=== PATIENT | male | born 1970 | race Caucasian/White ===

== ENCOUNTER 2017-06-07 07:51 | Emergency (ER) | payer BC ==
[2017-06-07] MEDS ORDERED: ZOFRAN INJ 4 MG VIAL ONE ×2 (07:52→09:17)
[2017-06-07] MEDS ORDERED: TORADOL 30 MG VIAL ONE (07:53)
[2017-06-07] MEDS ORDERED: ZOFRAN INJ 4 MG VIAL IVP ONE ×2 (08:02→09:16)
[2017-06-07] MEDS ORDERED: TORADOL 30 MG VIAL IVP ONE (08:02)
[2017-06-07] MEDS ORDERED: NS 1000 ML 1,000 ML IV ONE ×2 (08:05→09:10)
[2017-06-07 08:06] VITALS: BMI 29.0
[2017-06-07] MEDS ORDERED: NS 1000 ML 1,000 ML ONE ×2 (08:06→09:49)
[2017-06-07] MEDS ORDERED: DILAUDID INJ ONE ×2 (08:18→09:25)
[2017-06-07 08:24] LABS: BASOPHILS # (AUTO) 0.1 X10^3/uL (0.0-0.1); EOSINOPHILS # (AUTO) 0.4 x10^3/uL (0.0-0.2); EOSINOPHILS % (AUTO) 5.7 % (0.9-2.9); HEMATOCRIT 44.3 % (42.0-54.0); HEMOGLOBIN 15.2 g/dL (13.5-18.0); LYMPHOCYTES # (AUTO) 2.1 X10^3/uL (1.3-2.9); LYMPHOCYTES % (AUTO) 29.7 % (21.0-51.0); MEAN CORPUSCULAR HEMOGLOBIN 31.4 pg (27.0-34.0); MEAN CORPUSCULAR HGB CONC 34.4 g/dL (33.0-35.0); MEAN CORPUSCULAR VOLUME 91.1 fL (80.0-100.0); MEAN PLATELET VOLUME 10.4 fL (7.4-11.0); MONOCYTES # (AUTO) 0.5 x10^3/uL (0.3-0.8); MONOCYTES % (AUTO) 7.5 % (0.0-13.0); NEUTROPHILS % (AUTO) 56.1 % (42.0-75.0); PLATELET COUNT 159 X10^3/uL (150.0-450.0); RED BLOOD COUNT 4.86 X10^6/uL (4.7-6.0); RED CELL DISTRIBUTION WIDTH 12.9 % (11.6-16.5)
[2017-06-07] MEDS ORDERED: DILAUDID INJ IVP PRN (08:28)
--- NOTE | 2017-06-07 08:35 | DR.GENAD ---
HPI - HPI Comment HPI Comment: STARTED HOURS AGO. HISTORY KIDNEY STONE IN REMOTE PAST. NO FEVER OR DYSURIA. - Complaint/Symptoms Chief Complaint Doctors Comments: RIGHT FLANK PAIN RADIATING TO THE BACK WITH NAUSEA. Chief Complaint:: PT C/O RT FLANK PAIN RADIATING AROUND TO BACK. PT STATES HE ALSO HAS BEEN HAVING SOME NAUSEA. PT HAS A HISTORY OF KIDNEY STONES. - Nurses notes reviewed Nurses Notes Review: Yes - Source History Provided: Patient - Mode of Arrival Mode of Arrival: Ambulatory - Timing Onset of Chief Complaint: 06/07/17 Came on: Suddenly - Duration Duration: Constant Duration: Hours - Severity Severity: Moderate <TALIA GONZALEZ - Last Filed: 06/08/17 09:45> PMH - PMH Past Medical History: Yes Past Medical History: Dyslipidemia, Hyperthyroidism, Kidney Stones, [place] Past Surgical History: Yes Surgical History: Angioplasty/Stents, Lithotripsy Past Surgical History Comment: FACIAL SURGERY - Family History History of Family Medical Conditions: Yes Family Medical History: Diabetes Mellitus, Coronary Artery Disease, Hypertension - Social History Does any household member use tobacco: No Alcohol Use: None Do you use any recreational Drugs:: No Lives With: Family Lives Where: Home - infectious screening In the last 2 months have you had wt loss of >10#?: NO Have you had fever, night sweats or hemotysis?: No Have you traveled outside the country in the last 6 months?: No Isolation: Standard <TALIA GONZALEZ - Last Filed: 06/08/17 09:45> ROS - Review of Systems Constitutional: No Symptoms Reported Eyes: No Symptoms Reported ENTM: No Symptoms Reported Respiratoy: No Symptoms Reported Cardiovascular: No Symptoms Reported Gastrointestinal/Abdominal: Nausea Genitourinary: No Symptoms Reported Neurological: No Symptoms Reported Musculoskeletal: Back Pain, Back Integumentary: No Symptoms Reported Hematologic/Lymphatic: No Symptoms Reported Endocrine: No Symptoms Reported All Other Systems: Reviewed and Negative <TALIA GONZALEZ - Last Filed: 06/08/17 09:45> PE - General Limitations: No Limitations General Appearance: Alert - Head Head Exam: Normal Inspection - Eyes Eye exam: Normal Appearance - ENT ENT Exam: Normal External Ear Exam External Ear Exam: Normal External Inspection TM/Canal Exam: Bilateral Normal Nose Exam: Normal Nose Exam Mouth Exam: Normal Inspection Throat Exam: Normal Inspection - Neck Neck Exam: Trachea Midline - Chest Chest Inspection: Symmetric Chest Wall Rise - Respiratory Respiratory Exam: Normal Lung Sounds Bilat Respiratory Exam: Bilateral Clear to Auscultation - Cardiovascular Cardiovascular Exam: Regular Rate, Normal Rhythm, Normal Heart Sounds - Abdominal Exam Abdominal Exam: Normal Bowel Sounds, Soft. negative: Tenderness - Extremities Extremities Exam: Normal Inspection - Back Back Exam: (R) CVA Tenderness - Neurologic Neurological Exam: Alert, Oriented X3, Other (PATIENT IN PAIN.) - Psychiatric Psychiatric Exam: Normal Affect, Normal Mood - Skin Skin Exam: Normal Color <TALIA GONZALEZ - Last Filed: 06/08/17 09:45> - Vital Signs Vitals: Temperature 97.3 F Pulse Rate 60 Respiratory Rate 20 Blood Pressure [Right Arm] 113/58 Blood Pressure 127/82 O2 Sat by Pulse Oximetry 100 MDM - Additional Information Additional Information Obtained From: Family - Differential Diagnosis Differential Diagnosis: RIGHT RENAL CALCULI, PYELONEPHRITIS, MUSCULOSKELETAL PAIN <TALIA GONZALEZ - Last Filed: 06/08/17 09:45> Course - Treatment Treatment: SEE ORDERS. IV FLUID AND IV PAIN AND NAUSEA MED IN ED. - Reevaluation 1st: Unchanged 2nd: Improved - Education/Counseling Education/Counseling: Patient, Family, Education Educated On: Treatment, Diagnosis, Needs for Follow Up <TALIA GONZALEZ - Last Filed: 06/08/17 09:45> ROR - Labs Reviewed Result Diagrams: 06/07/17 08:16 06/07/17 08:16 <SHEYLA AUGUSTE - Last Filed: 06/07/17 08:46> - Labs Reviewed Laboratory Results Reviewed?: Yes Result Diagrams: 06/07/17 08:16 06/07/17 08:16 - XRAY XRAY Findings: REPORT DISCUSS WITH PATIENT. <TALIA GONZALEZ - Last Filed: 06/08/17 09:45> - Labs Reviewed Laboratory: WBC 7.0 X10^3/uL (3.6-10.0) 06/07/17 08:16 RBC 4.86 X10^6/uL (4.7-6.0) 06/07/17 08:16 Hgb 15.2 g/dL (13.5-18.0) 06/07/17 08:16 Hct 44.3 % (42.0-54.0) 06/07/17 08:16 MCV 91.1 fL (80.0-100.0) 06/07/17 08:16 MCH 31.4 pg (27.0-34.0) 06/07/17 08:16 MCHC 34.4 g/dL (33.0-35.0) 06/07/17 08:16 RDW 12.9 % (11.6-16.5) 06/07/17 08:16 Plt Count 159 X10^3/uL (150.0-450.0) 06/07/17 08:16 MPV 10.4 fL (7.4-11.0) 06/07/17 08:16 Neut % 56.1 % (42.0-75.0) 06/07/17 08:16 Lymph % 29.7 % (21.0-51.0) 06/07/17 08:16 [place] % 7.5 % (0.0-13.0) 06/07/17 08:16 Eos % 5.7 % (0.9-2.9) H 06/07/17 08:16 Baso % 1.0 % (0.2-1.0) 06/07/17 08:16 Neut # 4.0 x10^3/uL (2.2-4.8) 06/07/17 08:16 Lymph # 2.1 X10^3/uL (1.3-2.9) 06/07/17 08:16 [place] # 0.5 x10^3/uL (0.3-0.8) 06/07/17 08:16 Eos # 0.4 x10^3/uL (0.0-0.2) H 06/07/17 08:16 Baso # 0.1 X10^3/uL (0.0-0.1) 06/07/17 08:16 Absolute Nucleated RBC 0.0 /100WBC 06/07/17 08:16 Sodium 137 mmol/L (136-145) 06/07/17 08:16 Corrected Sodium 137 mmol/L (136-145) 06/07/17 08:16 Potassium 4.0 mmol/L (3.5-5.1) 06/07/17 08:16 Chloride 105 mmol/L (98-107) 06/07/17 08:16 Carbon Dioxide 24.2 mmol/L (21-32) 06/07/17 08:16 BUN 29 mg/dL (7-18) H 06/07/17 08:16 Creatinine 1.66 mg/dL (0.70-1.30) H 06/07/17 08:16 Est GFR (MDRD) Af Amer 58 (>60) L 06/07/17 08:16 Est GFR (MDRD) Non-Af 48 (>60) L 06/07/17 08:16 Glucose 119 mg/dL (65-99) H 06/07/17 08:16 Calcium 8.6 mg/dL (8.5-10.1) 06/07/17 08:16 Corrected Calcium TNP 06/07/17 08:16 Total Bilirubin 0.80 mg/dL (0.2-1.0) 06/07/17 08:16 AST 16 Units/L (15-37) 06/07/17 08:16 ALT 30 Units/L (12-78) 06/07/17 08:16 Alkaline Phosphatase 72 Units/L (46-116) 06/07/17 08:16 C-Reactive Protein 2.00 mg/L (0-3.0) 06/07/17 08:16 Total Protein 6.8 g/dL (6.4-8.2) 06/07/17 08:16 Albumin 3.7 g/dL (3.4-5.0) 06/07/17 08:16 Globulin 3.1 g/dL (2.5-4.5) 06/07/17 08:16 Albumin/Globulin Ratio 1.2 Ratio (1.1-2.1) 06/07/17 08:16 <SHEYLA AUGUSTE - Last Filed: 06/07/17 08:46> <TALIA GONZALEZ - Last Filed: 06/08/17 09:45> - Diagnosis Discharge Problem: Kidney stone on right side - Discharge Plan Disposition: HOME, SELF-CARE Condition: Stable - Follow ups/Referrals Follow ups/Referrals: DYEA HOWELL [Primary Care Provider] - 3 days GISELLE PRIETO [CONSULTING PHYSICIAN] - 06/07/17 - Instructions Instructions: Kidney Stones, [id number] Additional Instructions: RETURN TO ED IF WORSE. NPO TILL YOU SEE DR. PRIETO.
[2017-06-07 08:38] LABS: ALANINE AMINOTRANSFERASE 30 Units/L (12-78); ALBUMIN 3.7 g/dL (3.4-5.0); ALKALINE PHOSPHATASE 72 Units/L (46-116); ASPARTATE AMINO TRANSFERASE 16 Units/L (15-37); BLOOD UREA NITROGEN 29 mg/dL (7-18); CALCIUM 8.6 mg/dL (8.5-10.1); CARBON DIOXIDE 24.2 mmol/L (21-32); CHLORIDE 105 mmol/L (98-107); COR NA(FOR HYPERGLY) 137 mmol/L (136-145); CREATININE 1.66 mg/dL (0.70-1.30); SODIUM 137 mmol/L (136-145); TOTAL PROTEIN 6.8 g/dL (6.4-8.2); eGFR BLACK RACES 58 (>60); eGFR NON BLACK RACES 48 (>60)
--- NOTE | 2017-06-07 08:45 | CT ---
HISTORY: Right flank pain Study: CT abdomen and pelvis without IV or oral contrast Comparison: No priors Technique: Multiple axial images of the abdomen and pelvis were obtained from the lung bases to the pubic symphy sis without the administration of IV or oral contrast. Coronal and sagittal images are also reviewed . Dose reduction techniques utilized automatic exposure control. Findings: The visualized portions of the lung bases are unremarkable. The liver, spleen, pancreas, and adrenal glands are unremarkable in their CT appearance. The gallbladder is unremarkable in its CT appearance . There is a 2.7 mm nonobstructing stone in the upper pole of the left kidney. There are 2.4 and 5.7 mm nonobstructing stones present in the mid-lower kidney region on the right. A 4.0 mm stone is prese nt involving the right mid ureter with very mild obstructive change. No significant mesenteric lymph adenopathy or stranding can be observed. No free fluid or free air is seen within the abdomen. No b owel wall thickening or bowel dilatation is present. The colon is unremarkable. Specifically, there is no diverticulosis noted within the sigmoid colon. The urinary bladder is grossly unremarkable. T he bony structures are grossly intact. IMPRESSION: Bilateral kidney stones. 4 mm right mid ureteral stone with very mild obstructive change. Reported By:
[2017-06-07] MEDS ORDERED: FLOMAX PO ONE (09:11)
[2017-06-07] MEDS ORDERED: DILAUDID INJ IVP ONE (09:23)
[2017-06-07 10:19] VITALS: BP 113/58
== END 2017-06-07 10:21 | disposition home or self-care (01) ==
LOC: ER 07:59
DX: N20.0 Calculus of kidney (principal); R10.84 Generalized abdominal pain
CPT/HCPCS: 36415; 74176; 80053; 85025; 86140; 96365; 96367; 96374; 96375; 99283; 99285; A4222; J1170; J1885; J2405

== ENCOUNTER 2020-10-18 02:34 | Observation (INO) ==
[2020-10-18] MEDS ORDERED: NS 1000 ML 1,000 ML ONE ×2 (02:58→05:01)
[2020-10-18] MEDS ORDERED: NS 1000 ML 1,000 ML IV ONE (03:00)
--- NOTE | 2020-10-18 03:07 | DR.DIZZY ---
HPI Time seen Time Seen by Provider: 10/18/20 03:03 PCP Primary Care Physician: DEYA HOWELL Complaint Chief Complaint:: PT STATES HE'S BEEN TAKING A BOWEL PREP FOR TOMORROW FOR A PROCEDURE, HE WOKE UP TO GO TO THE BATHROOM, STARTED HAVING SEVERE ABDOMINAL CRAMPS AND THEN HE WAS UNABLE TO FEEL HIS HANDS/EXTREMITIES, CALLED OUT FOR HIS AND PASSED OUT, HIT HIS LIP. LACERATION NOTED TO UPPER LIP (INNER AND OUTER). Self Treatment fo Chief Complaint: ZOFRAN DISSOLVE Source History Provided: Patient and Family Member Mode of Arrival Mode of Arrival: EMS Timing Onset of Chief Complaint: 10/18/20 PMH PMH Past Medical History: Yes Past Medical History: Coronary Artery Disease, Dyslipidemia, Hypertension, Hypothyroidism and Kidney Stones Past Medical History Comment: CARDIAC STENTS X6, [place] X2 (APR 2011 AND DECEMBER 2019) Past Surgical History: Yes Surgical History: Angioplasty/Stents and Lithotripsy Past Surgical History Comment: FACIAL FRACTURE WITH PLATES AND SCREWS, LIT HOTRIPSY Family History History of Family Medical Conditions: Yes Family Medical History: Diabetes Mellitus and Hypertension Social History Does patient currently use any type of tobacco product: No Have you used tobacco products in the last 12 months: No Type of Tobacco Use: None Does any household member use tobacco: No Do you use any recreational Drugs:: No Lives With: Spouse Lives Where: Home Infectious screening In the last 2 months have you had wt loss of >10#?: NO Have you had fever, night sweats or hemotysis?: No Have you traveled outside the country in the last 6 months?: No Isolation: Standard PE Vital Signs Vitals: Temperature 97.6 F Pulse Rate 60 Respiratory Rate 20 Blood Pressure [Right Arm] 137/77 Blood Pressure 133/85 O2 Sat by Pulse Oximetry 100 ROR Labs Reviewed Result Diagrams: 10/18/20 03:12 10/18/20 03:12 Laboratory: WBC 7.0 X10^3/uL (3.6-10.0) 10/18/20 03:12 RBC 4.42 X10^6/uL (4.7-6.0) L 10/18/20 03:12 Hgb 14.2 g/dL (13.5-18.0) 10/18/20 03:12 Hct 41.2 % (42.0-54.0) L 10/18/20 03:12 MCV 93.1 fL (80.0-100.0) 10/18/20 03:12 MCH 32.1 pg (27.0-34.0) 10/18/20 03:12 MCHC 34.5 g/dL (33.0-35.0) 10/18/20 03:12 RDW 13.2 % (11.6-16.5) 10/18/20 03:12 Plt Count 166 X10^3/uL (150.0-450.0) 10/18/20 03:12 MPV 9.4 fL (7.4-11.0) 10/18/20 03:12 Neut % (Auto) 65.0 % (42.0-75.0) 10/18/20 03:12 Lymph % (Auto) 25.1 % (21.0-51.0) 10/18/20 03:12 [place] % (Auto) 6.6 % (0.0-13.0) 10/18/20 03:12 Eos % (Auto) 2.5 % (0.9-2.9) 10/18/20 03:12 Baso % (Auto) 0.8 % (0.2-1.0) 10/18/20 03:12 Neut # (Auto) 4.6 x10^3/uL (2.2-4.8) 10/18/20 03:12 Lymph # (Auto) 1.8 X10^3/uL (1.3-2.9) 10/18/20 03:12 [place] # (Auto) 0.5 x10^3/uL (0.3-0.8) 10/18/20 03:12 Eos # (Auto) 0.2 x10^3/uL (0.0-0.2) 10/18/20 03:12 Baso # (Auto) 0.1 X10^3/uL (0.0-0.1) 10/18/20 03:12 Absolute Nucleated RBC 0.1 /100WBC 10/18/20 03:12 Sodium 139 mmol/L (136-145) 10/18/20 03:12 Corrected Sodium TNP 10/18/20 03:12 Potassium 4.1 mmol/L (3.5-5.1) 10/18/20 03:12 Chloride 107 mmol/L (98-107) 10/18/20 03:12 Carbon Dioxide 25.7 mmol/L (21-32) 10/18/20 03:12 BUN 10 mg/dL (7-18) 10/18/20 03:12 Creatinine 1.76 mg/dL (0.70-1.30) H 10/18/20 03:12 Est GFR (MDRD) Af Amer 53 (>60) L 10/18/20 03:12 Est GFR (MDRD) Non-Af 44 (>60) L 10/18/20 03:12 Glucose 95 mg/dL (65-99) 10/18/20 03:12 Lactic Acid 1.6 mmol/L (0.4-2.0) 10/18/20 03:12 Calcium 7.8 mg/dL (8.5-10.1) L 10/18/20 03:12 Corrected Calcium 8.4 mg/dL (8.5-10.1) L 10/18/20 03:12 Total Bilirubin 0.50 mg/dL (0.2-1.0) 10/18/20 03:12 AST 15 Units/L (15-37) 10/18/20 03:12 ALT 22 Units/L (12-78) 10/18/20 03:12 Alkaline Phosphatase 67 Units/L (46-116) 10/18/20 03:12 Creatine Kinase 115 Units/L (39-308) 10/18/20 03:12 CK-MB (CK-2) 1.1 ng/mL (0-4.0) 10/18/20 03:12 CK/CKMB % Calc 1.0 % (<4) 10/18/20 03:12 Troponin I < 0.02 ng/mL (0-1.5) 10/18/20 03:12 Total Protein 5.9 g/dL (6.4-8.2) L 10/18/20 03:12 Albumin 3.3 g/dL (3.4-5.0) L 10/18/20 03:12 Globulin 2.6 g/dL (2.5-4.5) 10/18/20 03:12 Albumin/Globulin Ratio 1.3 Ratio (1.1-2.1) 10/18/20 03:12 Amylase 48 Units/L (25-115) 10/18/20 03:12 Lipase 280 Units/L (73-393) 10/18/20 03:12 Specimen Type Clean catch urine 10/18/20 04:08 Urine Color Yellow (YELLOW) 10/18/20 04:08 Urine Appearance Clear (CLEAR) 10/18/20 04:08 Urine pH 6.5 (5.0 - 8.0) 10/18/20 04:08 Ur Specific [place] 1.010 (1.000-1.030) 10/18/20 04:08 Urine Protein Negative (NEGATIVE) 10/18/20 04:08 Urine Glucose (UA) Negative (NEGATIVE) 10/18/20 04:08 Urine Ketones Negative (NEGATIVE) 10/18/20 04:08 Urine Occult Blood Negative (NEGATIVE) 10/18/20 04:08 Urine Nitrite Negative (NEGATIVE) 10/18/20 04:08 Urine Bilirubin Negative (NEGATIVE) 10/18/20 04:08 Urine Urobilinogen Normal (NORMAL) 10/18/20 04:08 Ur Leukocyte Esterase Negative (NEGATIVE) 10/18/20 04:08 Opioid Opioid Risk Tool Age (Avel box if 16-45): No History of Preadolescent Sexual Abuse: No Total: 0 Total Score Risk Category: Low Risk Copyright: Jorge WANG predicting aberrant behaviors
[2020-10-18 03:26] LABS: BASOPHILS # (AUTO) 0.1 X10^3/uL (0.0-0.1); BASOPHILS % (AUTO) 0.8 % (0.2-1.0); EOSINOPHILS # (AUTO) 0.2 x10^3/uL (0.0-0.2); EOSINOPHILS % (AUTO) 2.5 % (0.9-2.9); HEMATOCRIT 41.2 % (42.0-54.0); HEMOGLOBIN 14.2 g/dL (13.5-18.0); LYMPHOCYTES # (AUTO) 1.8 X10^3/uL (1.3-2.9); LYMPHOCYTES % (AUTO) 25.1 % (21.0-51.0); MEAN CORPUSCULAR HEMOGLOBIN 32.1 pg (27.0-34.0); MEAN CORPUSCULAR HGB CONC 34.5 g/dL (33.0-35.0); MEAN CORPUSCULAR VOLUME 93.1 fL (80.0-100.0); MEAN PLATELET VOLUME 9.4 fL (7.4-11.0); MONOCYTES # (AUTO) 0.5 x10^3/uL (0.3-0.8); MONOCYTES % (AUTO) 6.6 % (0.0-13.0); NEUTROPHILS # (AUTO) 4.6 x10^3/uL (2.2-4.8); PLATELET COUNT 166 X10^3/uL (150.0-450.0); RED BLOOD COUNT 4.42 X10^6/uL (4.7-6.0); RED CELL DISTRIBUTION WIDTH 13.2 % (11.6-16.5)
[2020-10-18 03:38] LABS: LACTIC ACID 1.6 mmol/L (0.4-2.0)
[2020-10-18 03:40] LABS: BLOOD UREA NITROGEN 10 mg/dL (7-18); CALCIUM 7.8 mg/dL (8.5-10.1); CARBON DIOXIDE 25.7 mmol/L (21-32); CHLORIDE 107 mmol/L (98-107); CREATININE 1.76 mg/dL (0.70-1.30); SODIUM 139 mmol/L (136-145); TROPONIN I < 0.02 ng/mL (0-1.5); eGFR NON BLACK RACES 44 (>60)
[2020-10-18 03:44] LABS: ALANINE AMINOTRANSFERASE 22 Units/L (12-78); ALBUMIN 3.3 g/dL (3.4-5.0); ALKALINE PHOSPHATASE 67 Units/L (46-116); AMYLASE 48 Units/L (25-115); ASPARTATE AMINO TRANSFERASE 15 Units/L (15-37); COR CA(FOR HYPOALB) 8.4 mg/dL (8.5-10.1); CREATINE KINASE 115 Units/L (39-308); CREATINE KINASE MB 1.1 ng/mL (0-4.0); LIPASE 280 Units/L (73-393); TOTAL PROTEIN 5.9 g/dL (6.4-8.2)
--- NOTE | 2020-10-18 03:52 | CT ---
PROCEDURE: CT Abdomen and Pelvis without Contrast .HISTORY: Epigastric pain.TECHNIQUE: Axial images were performed through the abdomen and pelvis without the administration of IV contrast with multiplanar reformations . Oral contrast was not administered . Dose reduction techniques including Automated Exposure Control (AEC) and adjustment of mA and kV were utilized .COMPARISON: 05/10/2019.TECHNICAL QUALITY: Satisfactory .FINDINGS:Clear lung bases.Liver, spleen, adrenals, pancreas show no significant abnormality.Subcentimeter nonobstructing caliceal stones both kidneys. No ureteral stones or obstructive uropathy.Normal biliary tract.No abdominal ascites or pneumoperitoneum.Normal aorta.No lymphadenopathy.No bowel obstruction or inflammation. Possible 3 cm giant duodenal diverticulum with food stuffs in the lumen. Normal appendix right lower quadrant.Pelvis shows no masses or free fluid. Normal urinary bladder.No acute bony abnormality.IMPRESSION:1. No explanation for epigastric pain.2. Bilateral nephrolithiasis.3. Giant duodenal diverticulum. For4. No other significant abnormality identified.Electronically signed by: Gavin Dooley (October 18, 2020 03:50:30)
--- NOTE | 2020-10-18 03:53 | CT ---
PROCEDURE: CT Head without Contrast .HISTORY: PT STATES PASSED OUT AND LANDED ON FACE .TECHNIQUE: Axial images were performed through the head without the administration of IV contrast with multiplanar reformations . Dose reduction techniques including Automated Exposure Control (AEC) and adjustment of mA and kV were utilized .COMPARISON: 01/29/2020.TECHNICAL QUALITY: Satisfactory .FINDINGS:Brain shows no mass, hemorrhage, or acute stroke.Ventricles are normal size for patient's age.No acute skull or scalp abnormality.Visualized sinuses and mastoids are clear.IMPRESSION:Normal CT scan of the head.Electronically signed by: Gavin Dooley (October 18, 2020 03:51:53)
[2020-10-18 04:24] LABS: BILIRUBIN,URINE NEGATIVE (NEGATIVE); BLOOD/HEMOGLOBIN,URINE NEGATIVE (NEGATIVE); GLUCOSE, URINE NEGATIVE (NEGATIVE); KETONES,URINE NEGATIVE (NEGATIVE); LEUKOCYTE ESTERASE ,URINE NEGATIVE (NEGATIVE); NITRITES,URINE NEGATIVE (NEGATIVE); PH,URINE 6.5 (5.0 - 8.0); PROTEIN,URINE NEGATIVE (NEGATIVE); UROBILINOGEN,URINE NORMAL (NORMAL)
[2020-10-18 04:26] LABS: APPEARANCE,URINE CLEAR (CLEAR); COLOR,URINE YELLOW (YELLOW)
[2020-10-18] MEDS ORDERED: ZOFRAN INJ 4 MG VIAL IVP PRN ×2 (04:46→05:32)
[2020-10-18] MEDS ORDERED: PEPCID 20 MG IV PREMIX* 20 MG/50 ML BAG IV PRN (04:46)
[2020-10-18] MEDS ORDERED: ZOFRAN INJ 4 MG VIAL ONE (04:57)
[2020-10-18] MEDS ORDERED: NS 1000 ML 1,000 ML IV SCH (05:00)
[2020-10-18] MEDS ORDERED: PEPCID 20 MG IV PREMIX* 20 MG/50 ML BAG IV ONE (05:01)
[2020-10-18] MEDS ORDERED: D5 LR 1000 ML 1,000 ML IV ONE (08:09)
[2020-10-18] MEDS ORDERED: DIPRIVAN VIAL 20 ML ONE ×2 (08:39→08:57)
[2020-10-18] MEDS ORDERED: XYLOCAINE 2 % (PLAIN) ONE (08:40)
[2020-10-18] MEDS ORDERED: ZOFRAN INJ 4 MG VIAL IVP ONE (09:38)
[2020-10-18 12:07] VITALS: BP 126/73
[2020-10-18 21:13] VITALS: BMI 26.8
== END 2020-10-18 14:00 | disposition home or self-care (01) ==
LOC: ER 02:34 → MED/SURG 02:34
PROVIDERS: ADMIT Emergency Medicine; ATTEND Surgery
DX: K21.00 Gastro-esophageal reflux disease with esophagitis, without bleeding; K27.9 Peptic ulcer, site unspecified, unspecified as acute or chronic, without hemorrhage or perforation; R13.11 Dysphagia, oral phase; I10 Essential (primary) hypertension; R10.84 Generalized abdominal pain; N20.0 Calculus of kidney; K44.9 Diaphragmatic hernia without obstruction or gangrene; E78.2 Mixed hyperlipidemia; K59.09 Other constipation; E03.8 Other specified hypothyroidism; I25.10 Atherosclerotic heart disease of native coronary artery without angina pectoris; R55 Syncope and collapse; K29.60 Other gastritis without bleeding; E86.0 Dehydration; W18.39XA Other fall on same level, initial encounter

== ENCOUNTER 2025-03-23 20:35 | Observation (INO) ==
--- NOTE | 2025-03-23 20:53 | EKG ---
Test Reason : chest pain Blood Pressure : */* mmHG Vent. Rate : 67 BPM Atrial Rate : 67 BPM P-R Int : 150 ms QRS Dur : 84 ms QT Int : 364 ms P-R-T Axes : 39 -1 -9 degrees QTc Int : 384 ms Normal sinus rhythm Inferior infarct , age undetermined Abnormal ECG No previous ECGs available Confirmed by Tad Flores MD ([id number]) on 03/24/2025 4:48:19 AM Referred By: Confirmed By: Tad Flores MD
[2025-03-23 21:14] LABS: MEAN PLATELET VOLUME 9.4 fL (7.4-11.0); RED CELL DISTRIBUTION WIDTH 13.6 % (11.6-16.5)
[2025-03-23 21:21] LABS: INR 0.88 (0.8-1.3)
[2025-03-23 21:34] LABS: CHOL/HDL RATIO 2.0 (0.0-5.0); CREATININE 1.58 mg/dL (0.70-1.30); eGFR NON BLACK RACES 49 (>60)
[2025-03-23 21:57] LABS: BLOOD/HEMOGLOBIN,URINE NEGATIVE (NEGATIVE); LEUKOCYTE ESTERASE ,URINE NEGATIVE (NEGATIVE); NITRITES,URINE NEGATIVE (NEGATIVE)
[2025-03-23 21:58] LABS: APPEARANCE,URINE CLEAR (CLEAR)
[2025-03-23 22:05] LABS: SQUAMOUS EPITHELIAL CELL,UR NEGATIVE /HPF (NEGATIVE)
--- NOTE | 2025-03-23 22:06 | DR.CP ---
HPI Time Seen Time Seen by Provider: 03/23/25 20:39 PCP Primary Care Physician: Chilel Complaint Chief Complaint Doctor Comments: Patient with extensive cardiovascular history including stents presents with left chest tightness/pain since yesterday. Pain radiates from left chest to right arm. Chief Complaint:: pt ambulatory in ed complains of chest tight radiading to his right arm and into his back since yesterday. pt states he had ju jitsu sunday and woke with a nagging pain sunday that hasnt went away. pt has an extensive cardiac hx. COVID-19 Coronavirus risk:travel/contact w/high risk person: No Has patient experienced Coronavirus symptoms: No Source History Provided: Patient Mode of Arrival Mode of Arrival: Ambulatory Timing Onset of Chief Complaint: 03/22/25 PMH PMH Past Medical History: Yes Past Medical History: Coronary Artery Disease, GERD, Hypertension, Hyperthyroidism, [place] and Renal Disease Past Medical History Comment: Ulcerative Colitis Past Surgical History: Yes Surgical History: Angioplasty/Stents, Ortho Surgery and Lithotripsy Past Surgical History Comment: Total Left Hip, [place] Fx Repair Family History History of Family Medical Conditions: Yes Family Medical History: Coronary Artery Disease and Hypertension Social History Do you use any recreational Drugs:: No Travel Risk Coronavirus risk:travel/contact w/high risk person: No Has patient experienced Coronavirus symptoms: No Infectious screening Have you traveled outside the country in the last 6 months?: No Isolation: Standard ROS Review of Systems Constitutional: No Symptoms Reported Eyes: No Symptoms Reported ENTM: No Symptoms Reported Respiratoy: No Symptoms Reported Cardiovascular: See HPI and Chest Pain; negative Edema, Palpitations, Syncope or Cyanosis Gastrointestinal/Abdominal: No Symptoms Reported Genitourinary: No Symptoms Reported Neurological: No Symptoms Reported Musculoskeletal: No Symptoms Reported Integumentary: No Symptoms Reported Hematologic/Lymphatic: No Symptoms Reported Endocrine: No Symptoms Reported Psychiatric: No Symptoms Reported All Other Systems: Reviewed and Negative PE Vitals Vitals: Vital Signs Temperature 98.0 F Pulse Rate 56 Pulse Rate 57 Pulse Rate 56 Pulse Rate 55 Pulse Rate 56 Pulse Rate 58 Pulse Rate 60 Pulse Rate 64 Pulse Rate 62 Pulse Rate 66 Pulse Rate 65 Pulse Rate 67 Respiratory Rate 20 Respiratory Rate 16 Respiratory Rate 25 Respiratory Rate 18 Respiratory Rate 22 Respiratory Rate 23 Respiratory Rate 24 Respiratory Rate 21 Respiratory Rate 22 Respiratory Rate 20 Blood Pressure 145/89 Blood Pressure 127/75 Blood Pressure 148/90 Blood Pressure 138/89 Blood Pressure 138/83 O2 Sat by Pulse Oximetry 97 O2 Sat by Pulse Oximetry 97 O2 Sat by Pulse Oximetry 97 O2 Sat by Pulse Oximetry 97 O2 Sat by Pulse Oximetry 97 O2 Sat by Pulse Oximetry 97 O2 Sat by Pulse Oximetry 96 O2 Sat by Pulse Oximetry 98 O2 Sat by Pulse Oximetry 98 O2 Sat by Pulse Oximetry 99 O2 Sat by Pulse Oximetry 99 General Limitations: No Limitations General Appearance: Alert and In No Apparent Distress Head Head Exam: Normal Inspection Eyes Eye exam: Normal Appearance ENT ENT Exam: Normal Exam Chest Chest Inspection: Normal Inspection and Symmetric Chest Wall Rise; negative Tenderness Respiratory Respiratory Exam: Normal Lung Sounds Bilat Cardiovascular Cardiovascular Exam: Regular Rate and Normal Rhythm Pulse: Normal Edema: Normal Abdominal Exam Abdominal Exam: Normal Inspection, Normal Bowel Sounds and Soft Extremities Extremities Exam: Normal Inspection Back Back Exam: Normal Inspection Neurologic Neurological Exam: Alert and Oriented X3 Psychiatric Psychiatric Exam: Normal Affect and Normal Mood Skin Skin Exam: Warm, Dry, Intact and Normal Color COURSE Treatment Treatment: Discussed results of workup with patient patient heart score of 4-5. Patient agreeable to admission. Consultation Called: 23:50 Consultation Comments: Discussed case with Dr. Flores and he is agreeable to admission ROR Labs Reviewed Laboratory Results Reviewed?: Yes 03/23/25 20:45 03/23/25 20:45 Laboratory: WBC 6.2 X10^3/uL (3.6-10.0) 03/23/25 20:45 RBC 4.85 X10^6/uL (4.7-6.0) 03/23/25 20:45 Hgb 14.9 g/dL (13.5-18.0) 03/23/25 20:45 Hct 43.2 % (42.0-54.0) 03/23/25 20:45 MCV 89.1 fL (80.0-100.0) 03/23/25 20:45 MCH 30.6 pg (27.0-34.0) 03/23/25 20:45 MCHC 34.4 g/dL (33.0-35.0) 03/23/25 20:45 RDW 13.6 % (11.6-16.5) 03/23/25 20:45 Plt Count 195 X10^3/uL (150.0-450.0) 03/23/25 20:45 MPV 9.4 fL (7.4-11.0) 03/23/25 20:45 Neut % (Auto) 56.9 % (42.0-75.0) 03/23/25 20:45 Lymph % (Auto) 32.6 % (21.0-51.0) 03/23/25 20:45 [place] % (Auto) 7.8 % (0.0-13.0) 03/23/25 20:45 Eos % (Auto) 1.6 % (0.9-2.9) 03/23/25 20:45 Baso % (Auto) 1.1 % (0.2-1.0) H 03/23/25 20:45 Neut # (Auto) 3.5 x10^3/uL (2.2-4.8) 03/23/25 20:45 Lymph # (Auto) 2.0 X10^3/uL (1.3-2.9) 03/23/25 20:45 Dickinson # (Auto) 0.5 x10^3/uL (0.3-0.8) 03/23/25 20:45 Eos # (Auto) 0.1 x10^3/uL (0.0-0.2) 03/23/25 20:45 Baso # (Auto) 0.1 X10^3/uL (0.0-0.1) 03/23/25 20:45 Absolute Nucleated RBC 0.2 /100WBC 03/23/25 20:45 PT 12.0 SECONDS (11.8-14.3) 03/23/25 20:45 INR Target Range - 03/23/25 20:45 INR 0.88 (0.8-1.3) 03/23/25 20:45 APTT 24.3 SECONDS (22.9-36.5) 03/23/25 20:45 PTT Comment - 03/23/25 20:45 Sodium 139 mmol/L (136-145) 03/23/25 20:45 Corrected Sodium TNP 03/23/25 20:45 Potassium 3.2 mmol/L (3.5-5.1) L 03/23/25 20:45 Chloride 103 mmol/L (98-107) 03/23/25 20:45 Carbon Dioxide 28.5 mmol/L (21-32) 03/23/25 20:45 BUN 9 mg/dL (7-18) 03/23/25 20:45 Creatinine 1.58 mg/dL (0.70-1.30) H 03/23/25 20:45 Est GFR (MDRD) Af Amer 59 (>60) 03/23/25 20:45 Est GFR (MDRD) Non-Af 49 (>60) L 03/23/25 20:45 Glucose 96 mg/dL (65-99) 03/23/25 20:45 Calcium 8.5 mg/dL (8.5-10.1) 03/23/25 20:45 Corrected Calcium TNP 03/23/25 20:45 Magnesium 1.9 mg/dL (2.0-2.9) L 03/23/25 20:45 Total Bilirubin 0.50 mg/dL (0.2-1.0) 03/23/25 20:45 AST 15 Units/L (15-37) 03/23/25 20:45 ALT 20 Units/L (12-78) 03/23/25 20:45 Alkaline Phosphatase 100 Units/L (46-116) 03/23/25 20:45 Creatine Kinase 82 Units/L (39-308) 03/23/25 20:45 Troponin I High Sens 6.6 ng/L (4.0-60.0) 03/23/25 22:27 Total Protein 6.6 g/dL (6.4-8.2) 03/23/25 20:45 Albumin 3.5 g/dL (3.4-5.0) 03/23/25 20:45 Globulin 3.1 g/dL (2.5-4.5) 03/23/25 20:45 Albumin/Globulin Ratio 1.1 Ratio (1.1-2.1) 03/23/25 20:45 Triglycerides 236 mg/dL (0-150) H 03/23/25 20:45 Triglycerides Cancelled 03/23/25 20:45 Cholesterol 118 mg/dL (0-200) 03/23/25 20:45 Cholesterol Cancelled 03/23/25 20:45 LDL Cholesterol, Calc 12 mg/dL (0-100) 03/23/25 20:45 LDL Cholesterol, Calc Cancelled 03/23/25 20:45 HDL Cholesterol 59 mg/dL (40-60) 03/23/25 20:45 HDL Cholesterol Cancelled 03/23/25 20:45 Cholesterol/HDL Ratio 2.0 (0.0-5.0) 03/23/25 20:45 Cholesterol/HDL Ratio Cancelled 03/23/25 20:45 Specimen Type Clean catch urine 03/23/25 21:42 Urine Color Straw (YELLOW) 03/23/25 21:42 Urine Appearance Clear (CLEAR) 03/23/25 21:42 Urine pH 6.0 (5.0 - 8.0) 03/23/25 21:42 Ur Specific [place] 1.010 (1.000-1.030) 03/23/25 21:42 Urine Protein 1+ (NEGATIVE) 03/23/25 21:42 Urine Glucose (UA) 4+ (NEGATIVE) 03/23/25 21:42 Urine Ketones Negative (NEGATIVE) 03/23/25 21:42 Urine Blood Negative (NEGATIVE) 03/23/25 21:42 Urine Nitrite Negative (NEGATIVE) 03/23/25 21:42 Urine Bilirubin Negative (NEGATIVE) 03/23/25 21:42 Urine Urobilinogen Normal (NORMAL) 03/23/25 21:42 Ur Leukocyte Esterase Negative (NEGATIVE) 03/23/25 21:42 Urine RBC None seen /HPF (0-3) 03/23/25 21:42 Urine WBC None seen /HPF (0-5) 03/23/25 21:42 Ur Squamous Epith Cells Negative /HPF (NEGATIVE) 03/23/25 21:42 Urine Bacteria Negative /HPF (NEGATIVE) 03/23/25 21:42 Ur Culture Indicated? No/not indicated 03/23/25 21:42 XRAY X-ray Results: Name: NAVYA COFFEY : 1970 Sex: M Location: ER Order Number(s): [id number] Procedure(s):CHEST, 1 VIEW X-RAY Ordering Physician: Kye Boone Primary Care: [facility] Service Date: 03/23/25 Service Time: 2039 EXAM: CHEST, 1 VIEW HISTORY: Chest Pain; COMPARISON: October 29, 2023 FINDINGS: The lungs are clear. No pneumothorax or effusion. Heart size is normal. The bones are unremarkable. IMPRESSION: 1. No acute cardiopulmonary abnormality THIS IS AN ELECTRONICALLY VERIFIED FINAL REPORT 03/23/2025 10:49 PM - Electronically signed by Hannah Mendoza MD EKG Rate: 67 [place]: Normal Rhythm: NSR Block: None Hypertrophy: None ST: Normal Opioid Opioid Risk Tool Age (Avel box if 16-45): No History of Preadolescent Sexual Abuse: No Total: 0 Total Score Risk Category: Low Risk Copyright: [facility] predicting aberrant behaviors Discharge Plan Diagnosis Discharge Problem: Chest pain, Coronary artery disease, Hypertension, Hyperlipidemia Discharge Plan Patient Disposition: ADMITTED INPATIENT Condition: Stable Prescriptions: No Action aspirin 81 mg Tablet 81 mg PO QMWF ergocalciferol (vitamin D2) [Drisdol] 1,250 mcg (50,000 unit) Capsule 1,250 mcg PO Q2W tadalafil 5 mg Tablet 5 mg PO QDAY pantoprazole 40 mg tablet,delayed release (DR/EC) 40 mg PO DAILY losartan 25 mg tablet 25 mg PO DAILY testosterone cypionate 200 mg/mL oil 100 mg IM WEEKLY Repatha SureClick 140 mg/mL pen injector 140 mg SUBCUT Q2W amlodipine 5 mg tablet 5 mg PO QDAY meloxicam 7.5 mg tablet 7.5 mg PO QMWF tamsulosin 0.4 mg capsule 0.4 mg PO DAILY levothyroxine 150 mcg tablet 150 mcg PO QDAY dapagliflozin propanediol [Farxiga] 10 mg tablet 10 mg PO QDAY Health Concerns: Post Hospitalization: new medications and changes needed to prevent readmission or further decline. Pt educated and given instructions on all concerns. Plan of Treatment: Continue with present treatment and follow up plan. Pt is to keep follow up appointment as instructed and take medications as ordered. Orders to Discharge Patient Discharge Orders: Transfer (Routine); Ordered 03/23/25 Ordered By: Kye Boone Follow ups/Referrals Follow ups/Referrals: DEYA HOWELL [Primary Care Provider, MEDICAL] - 3 days Instructions Stand Alone Forms: Find Help Web Site, Post Hospital Follow Up Care Print Language: LITHUANIAN
--- NOTE | 2025-03-23 22:53 | RAD ---
EXAM: CHEST, 1 VIEW HISTORY: Chest Pain; COMPARISON: October 29, 2023 FINDINGS: The lungs are clear. No pneumothorax or effusion. Heart size is normal. The bones are unremarkable. IMPRESSION: 1. No acute cardiopulmonary abnormality THIS IS AN ELECTRONICALLY VERIFIED FINAL REPORT 03/23/2025 10:49 PM - Electronically signed by Hannah Mendoza MD
[2025-03-24] MEDS ORDERED: TYLENOL 325 MG TAB PO PRN (00:53)
[2025-03-24] MEDS ORDERED: NORCO 5/325 MG TAB PO PRN (00:53)
[2025-03-24] MEDS ORDERED: ULTRAM PO PRN (00:53)
[2025-03-24] MEDS ORDERED: CONSULT PHARMACY - POTASSIUM & MAGNESIUM XX SCH ×2 (00:53→07:00)
[2025-03-24] MEDS ORDERED: NITROSTAT SL PRN (00:53)
--- NOTE | 2025-03-24 01:08 | EKG ---
Test Reason : chest pain Blood Pressure : */* mmHG Vent. Rate : 48 BPM Atrial Rate : 48 BPM P-R Int : 160 ms QRS Dur : 80 ms QT Int : 432 ms P-R-T Axes : 46 10 3 degrees QTc Int : 385 ms Sinus bradycardia Otherwise normal ECG When compared with ECG of 23-MAR-2025 20:52, (Unconfirmed) Criteria for Inferior infarct are no longer present Confirmed by Tad Flores MD ([id number]) on 03/24/2025 4:48:14 AM Referred By: Confirmed By: Tad Flores MD
[2025-03-24] MEDS: MAG-OX TAB PO ONE (02:36)
[2025-03-24] MEDS: MAG-OX TAB PO SCH (02:52)
[2025-03-24] MEDS: K-DUR TAB 20 MEQ PO SCH ×2 (02:53→08:34)
[2025-03-24 04:38] LABS: MEAN PLATELET VOLUME 9.0 fL (7.4-11.0); RED CELL DISTRIBUTION WIDTH 13.7 % (11.6-16.5)
[2025-03-24 04:49] LABS: CHOL/HDL RATIO 1.9 (0.0-5.0); COR CA(FOR HYPOALB) 8.9 mg/dL (8.5-10.1); CREATININE 1.47 mg/dL (0.70-1.30); eGFR NON BLACK RACES 53 (>60)
[2025-03-24 04:53] VITALS: BMI 27.5
--- NOTE | 2025-03-24 06:41 | EKG ---
Test Reason : chest pain Blood Pressure : */* mmHG Vent. Rate : 48 BPM Atrial Rate : 48 BPM P-R Int : 158 ms QRS Dur : 82 ms QT Int : 406 ms P-R-T Axes : 11 5 -8 degrees QTc Int : 362 ms Sinus bradycardia Nonspecific T wave abnormality Abnormal ECG When compared with ECG of 24-MAR-2025 01:05, No significant change was found Confirmed by Tad Flores MD ([id number]) on 03/24/2025 7:06:53 AM Referred By: Confirmed By: Tad Flores MD
--- NOTE | 2025-03-24 08:26 | DR.H&P ---
H&P History & Physical for Day of: H&P Date: 03/23/25 Chief Complaint Chief Complaint: chest pain, sob History of Present Illness History of Present Illness: Pt is 54 WM, ER admission with pt presenting with left chest tightness/pain since yesterday. Pain radiates from left chest to right arm. Pt has PMH of CAD with last cath and stent placement 2018 at [facility] in [place], Dr. Multani. Pt reports he had a "work up" in ~Jul of this year with his certified medical biller. Pt reports several episodes of waking up from his sleep with "feeling something is wrong". Pt has HTN, CKD, OA, Gerd and hypothyroidism. Past Medical History Past Medical History: Coronary Artery Disease, GERD, Hypertension, Hyperthyroidism, [place] and Renal Disease Past Surgical History Surgical History: Angioplasty/Stents, Joint Replacement and Lithotripsy Family History Family Medical History: [place] and Coronary Artery Disease Social History Does patient currently use any type of tobacco product: No Type of Tobacco Use: None Alcohol Use: None Drug Use: None Medications Home Medications: Home Medications Medication Instructions Recorded Confirmed Type evolocumab 140 mg/mL subcutaneous 140 mg subcut Q2W 03/23/25 History pen injector (Fe Steele) losartan 25 mg tablet 25 mg PO DAILY 10/18/2003/05 History pantoprazole 40 mg tablet,delayed 40 mg PO DAILY 10/1803/23/25 History release testosterone cypionate 200 mg/mL 100 mg IM WEEKLY 10/0203/23/25 History intramuscular oil amlodipine 5 mg tablet 5 mg PO QDAY 10/11/24 History dapagliflozin propanediol 10 mg 10 mg PO QDAY 10/11/24 03/23/25 History tablet (Farxiga) levothyroxine 150 mcg tablet 150 mcg PO QDAY 10/11/24 03/23/25 History meloxicam 7.5 mg tablet 7.5 mg PO QMWF 10/11/2403/05 History tamsulosin 0.4 mg capsule 0.4 mg PO DAILY 10/11/24 History aspirin 81 mg tablet 81 mg PO QMWF 03/23/2503/23 History ergocalciferol (vitamin D2) 1,250 1,250 mcg PO Q2W 03/23/25 History mcg (50,000 unit) capsule tadalafil 5 mg tablet 5 mg PO QDAY 03/23/25 History mesalamine 1.2 gram tablet,delayed 4.8 g PO QDAY UC 03/24/25 History release Allergies Allergies Allergy/AdvReac Type Severity Reaction Status Date / Time allopurinol Allergy Verified 03/23/25 21:04 nitroglycerin AdvReac Verified 03/23/25 21:04 Labs 03/24/25 04:27 03/24/25 04:27 Labs: Laboratory WBC 6.6 X10^3/uL (3.6-10.0) 03/24/25 04:27 RBC 4.68 X10^6/uL (4.7-6.0) L 03/24/25 04:27 Hgb 14.3 g/dL (13.5-18.0) 03/24/25 04:27 Hct 41.7 % (42.0-54.0) L 03/24/25 04:27 MCV 89.1 fL (80.0-100.0) 03/24/25 04:27 MCH 30.5 pg (27.0-34.0) 03/24/25 04:27 MCHC 34.2 g/dL (33.0-35.0) 03/24/25 04:27 RDW 13.7 % (11.6-16.5) 03/24/25 04:27 Plt Count 190 X10^3/uL (150.0-450.0) 03/24/25 04:27 MPV 9.0 fL (7.4-11.0) 03/24/25 04:27 Neut % (Auto) 59.8 % (42.0-75.0) 03/24/25 04:27 Lymph % (Auto) 29.8 % (21.0-51.0) 03/24/25 04:27 [place] % (Auto) 7.4 % (0.0-13.0) 03/24/25 04:27 Eos % (Auto) 2.3 % (0.9-2.9) 03/24/25 04:27 Baso % (Auto) 0.7 % (0.2-1.0) 03/24/25 04:27 Neut # (Auto) 4.0 x10^3/uL (2.2-4.8) 03/24/25 04:27 Lymph # (Auto) 2.0 X10^3/uL (1.3-2.9) 03/24/25 04:27 [place] # (Auto) 0.5 x10^3/uL (0.3-0.8) 03/24/25 04:27 Eos # (Auto) 0.2 x10^3/uL (0.0-0.2) 03/24/25 04:27 Baso # (Auto) 0.0 X10^3/uL (0.0-0.1) 03/24/25 04:27 Absolute Nucleated RBC 0.1 /100WBC 03/24/25 04:27 PT 12.0 SECONDS (11.8-14.3) 03/23/25 20:45 INR Target Range - 03/23/25 20:45 INR 0.88 (0.8-1.3) 03/23/25 20:45 APTT 24.3 SECONDS (22.9-36.5) 03/23/25 20:45 PTT Comment - 03/23/25 20:45 Sodium 140 mmol/L (136-145) 03/24/25 04:27 Corrected Sodium TNP 03/24/25 04:27 Potassium 3.7 mmol/L (3.5-5.1) 03/24/25 04:27 Chloride 106 mmol/L (98-107) 03/24/25 04:27 Carbon Dioxide 29.5 mmol/L (21-32) 03/24/25 04:27 BUN 10 mg/dL (7-18) 03/24/25 04:27 Creatinine 1.47 mg/dL (0.70-1.30) H 03/24/25 04:27 Est GFR (MDRD) Af Amer > 60 (>60) 03/24/25 04:27 Est GFR (MDRD) Non-Af 53 (>60) L 03/24/25 04:27 Glucose 87 mg/dL (65-99) 03/24/25 04:27 Calcium 8.3 mg/dL (8.5-10.1) L 03/24/25 04:27 Corrected Calcium 8.9 mg/dL (8.5-10.1) 03/24/25 04:27 Magnesium 2.0 mg/dL (2.0-2.9) 03/24/25 04:27 Total Bilirubin 0.60 mg/dL (0.2-1.0) 03/24/25 04:27 AST 13 Units/L (15-37) L 03/24/25 04:27 ALT 19 Units/L (12-78) 03/24/25 04:27 Alkaline Phosphatase 96 Units/L (46-116) 03/24/25 04:27 Creatine Kinase 61 Units/L (39-308) 03/24/25 06:45 Troponin I High Sens 7.8 ng/L (4.0-60.0) 03/24/25 06:45 Total Protein 6.1 g/dL (6.4-8.2) L 03/24/25 04:27 Albumin 3.2 g/dL (3.4-5.0) L 03/24/25 04:27 Globulin 2.9 g/dL (2.5-4.5) 03/24/25 04:27 Albumin/Globulin Ratio 1.1 Ratio (1.1-2.1) 03/24/25 04:27 Triglycerides 81 mg/dL (0-150) 03/24/25 04:27 Cholesterol 106 mg/dL (0-200) 03/24/25 04:27 LDL Cholesterol, Calc 34 mg/dL (0-100) 03/24/25 04:27 HDL Cholesterol 56 mg/dL (40-60) 03/24/25 04:27 Cholesterol/HDL Ratio 1.9 (0.0-5.0) 03/24/25 04:27 Specimen Type Clean catch urine 03/23/25 21:42 Urine Color Straw (YELLOW) 03/23/25 21:42 Urine Appearance Clear (CLEAR) 03/23/25 21:42 Urine pH 6.0 (5.0 - 8.0) 03/23/25 21:42 Ur Specific Fisher 1.010 (1.000-1.030) 03/23/25 21:42 Urine Protein 1+ (NEGATIVE) 03/23/25 21:42 Urine Glucose (UA) 4+ (NEGATIVE) 03/23/25 21:42 Urine Ketones Negative (NEGATIVE) 03/23/25 21:42 Urine Blood Negative (NEGATIVE) 03/23/25 21:42 Urine Nitrite Negative (NEGATIVE) 03/23/25 21:42 Urine Bilirubin Negative (NEGATIVE) 03/23/25 21:42 Urine Urobilinogen Normal (NORMAL) 03/23/25 21:42 Ur Leukocyte Esterase Negative (NEGATIVE) 03/23/25 21:42 Urine RBC None seen /HPF (0-3) 03/23/25 21:42 Urine WBC None seen /HPF (0-5) 03/23/25 21:42 Ur Squamous Epith Cells Negative /HPF (NEGATIVE) 03/23/25 21:42 Urine Bacteria Negative /HPF (NEGATIVE) 03/23/25 21:42 Ur Culture Indicated? No/not indicated 03/23/25 21:42 Review of Systems Constitutional: No Symptoms Reported Eyes: No Symptoms Reported ENT: No Symptoms Reported Respiratory: SOB with Excertion Cardiovascular: Chest Pain (tightness) Gastrointestinal: No Symptoms Reported Genitourinary: No Symptoms Reported Musculoskeletal: No Symptoms Reported Skin: No Symptoms Reported Neurological: No Symptoms Reported Physical Exam Vital Signs: Vital Signs Temperature 97.6 F Temperature 97.4 F Pulse Rate [Brachial] 54 Pulse Rate [Brachial] 57 Pulse Rate 52 Respiratory Rate 19 Respiratory Rate 20 Respiratory Rate 17 Blood Pressure [Left Arm] 146/87 Blood Pressure [Left Arm] 139/91 Blood Pressure 136/85 O2 Sat by Pulse Oximetry 98 O2 Sat by Pulse Oximetry 98 O2 Sat by Pulse Oximetry 95 Oriented: Normal Eyes: Normal Ear: Normal Nose: Normal Throat: Normal Respiratory: Clear Throughout Cardiovascular: Normal; negative Edema : Normal Auscultation: Bowel Sounds: Normal Palpation: Normal Tenderness: Normal Skin: Normal Musculoskeletal: Normal Psychiatric: Anxiety Affect: Anxious Speech Pattern: Clear and Appropriate Assessment/Plan (1) Chest pain: Status: Acute Plan: admit, serial ce and ekg cxr on admission, verify home medications bp control, statin and aspirin therapy verify last cath date, echo and stress test. consult Dr. Flores cardiology (2) Coronary artery disease: Status: Acute (3) Hypertension: Status: Acute (4) Hyperlipidemia: Status: Acute
[2025-03-24] MEDS: FARXIGA PO SCH (08:34)
[2025-03-24] MEDS: ASPIRIN PO SCH (08:34)
[2025-03-24] MEDS: NORVASC TAB 5 MG PO SCH (08:45)
[2025-03-24] MEDS: FLOMAX PO SCH (08:45)
[2025-03-24] MEDS ORDERED: PROTONIX TAB 40 MG PO SCH (09:00)
[2025-03-24] MEDS ORDERED: MOTRIN TAB 800 MG PO SCH (09:00)
[2025-03-24] MEDS ORDERED: EVOLOCUMAB 140 MG/ML SUBCUT SCH (09:00)
[2025-03-24] MEDS ORDERED: PATIENT'S HOME MEDICATION (Losartan 25 mg tablet) PO SCH (09:00)
[2025-03-24] MEDS: COZAAR PO SCH (09:38)
[2025-03-24] MEDS: DEPO-TESTOSTERONE IM SCH (10:09)
[2025-03-24] MEDS: LIPITOR TAB 20 MG PO SCH (10:10)
[2025-03-24] MEDS: PROTONIX INJ 40 MG VIAL IVP SCH (10:10)
--- NOTE | 2025-03-24 10:19 | DR.CONSULT ---
CONSULT Consultation for Day of: Date: 03/24/25 Chief Complaint Chief Complaint: chest pain for 2 days Allergies Allergies Allergy/AdvReac Type Severity Reaction Status Date / Time allopurinol Allergy Verified 03/23/25 21:04 nitroglycerin AdvReac Verified 03/23/25 21:04 History of Present Illness History of Present Illness: 54 yo male- stents - last stress 2 years ago- recent echo w good lv per him- sees cardio at [facility]- 2 days of constant nagging cp- usually very active-weights martial arts/works- admitted- 3 trops negative- ekg: sb w/o changes. meds: ccb/asa/farxiga/repatha/losartan- no nitrate as takes tadalafil Past Medical History Past Medical History: Coronary Artery Disease, GERD, Hypertension, Hyperthyroidism, [place] and Renal Disease Past Surgical History Surgical History: Angioplasty/Stents, Joint Replacement and Lithotripsy Family History Family Medical History: [place] and Coronary Artery Disease Social History Does patient currently use any type of tobacco product: No Type of Tobacco Use: None Alcohol Use: None Drug Use: None Medications Home Medications: allopurinol Allergy (Verified 03/23/25 21:04) nitroglycerin Adverse Reaction (Verified 03/23/25 21:04) CONTINUE taking the following medications aspirin 81 mg tablet 81 mg PO QMWF 03/23/25 [History] ergocalciferol (vitamin D2) 1,250 mcg (50,000 unit) capsule 1,250 mcg PO Q2W 03/23/25 [History] tadalafil 5 mg tablet 5 mg PO QDAY 03/23/25 [History] mesalamine 1.2 gram tablet,delayed release 4.8 g PO QDAY UC 03/24/25 [History] Physical Exam Vital Signs: Vital Signs Temperature 97.6 F Pulse Rate [Brachial] 54 Respiratory Rate 19 Blood Pressure [Left Arm] 146/87 O2 Sat by Pulse Oximetry 98 alert ox3 nad no bruits clear lungs reg/kar no edema/good pulses other labs: hct 41 cr 1.47 ldl 34 hdl 56 cxr: nad Plan (1) Chest pain: Status: Acute Narrative Support Text: days of cp- no mi per trops/ekg Plan: local therapy to chest for presumed m/s cp- wants to go see primary cardio (2) Coronary artery disease: Status: Acute (3) Hypertension: Status: Acute (4) Hyperlipidemia: Status: Acute
[2025-03-24] MEDS: VITAMIN D (1.25MG) PO ONE (10:41)
[2025-03-24] MEDS: TADALAFIL 5 MG PO SCH (10:46)
[2025-03-24 11:03] VITALS: RESP 20
[2025-03-24 12:28] VITALS: BP 125/68; PULSE 55; TEMP 97.9; O2SAT 100
--- NOTE | 2025-03-24 13:26 | EKG ---
Test Reason : chest pain Blood Pressure : */* mmHG Vent. Rate : 72 BPM Atrial Rate : 72 BPM P-R Int : 144 ms QRS Dur : 78 ms QT Int : 346 ms P-R-T Axes : 34 3 -9 degrees QTc Int : 378 ms Normal sinus rhythm Nonspecific T wave abnormality Abnormal ECG When compared with ECG of 24-MAR-2025 06:38, Vent. rate has increased BY 24 BPM Confirmed by Tad Flores MD ([id number]) on 03/25/2025 7:22:17 AM Referred By: Confirmed By: Tad Flores MD
[2025-03-25] MEDS ORDERED: ASPIRIN EC 81 MG PO SCH (09:17)
== END 2025-03-24 16:00 | disposition home or self-care (01) ==
LOC: MED/SURG 20:35 → ER 20:35 → MED/SURG 03-24 00:44
PROVIDERS: ADMIT Obstetrics & Gynecology Obstetrics; ATTEND Internal Medicine
DX: R07.89 Other chest pain; M19.90 Unspecified osteoarthritis, unspecified site; E83.42 Hypomagnesemia; K21.9 Gastro-esophageal reflux disease without esophagitis; E87.1 Hypo-osmolality and hyponatremia; Z79.899 Other long term (current) drug therapy; I25.10 Atherosclerotic heart disease of native coronary artery without angina pectoris; R06.02 Shortness of breath; R94.31 Abnormal electrocardiogram [ECG] [EKG]; I10 Essential (primary) hypertension; R00.1 Bradycardia, unspecified; Z95.5 Presence of coronary angioplasty implant and graft; E78.5 Hyperlipidemia, unspecified; I12.9 Hypertensive chronic kidney disease with stage 1 through stage 4 chronic kidney disease, or unspecified chronic kidney disease; R94.4 Abnormal results of kidney function studies; N18.9 Chronic kidney disease, unspecified